=== PATIENT | male | born 1945 | race Caucasian/White ===

== ENCOUNTER 2017-09-25 19:07 | Inpatient (IN) | payer BC, MEDICARE ==
[2017-09-25] MEDS ORDERED: Piperacillin/Tazobactam 3.375 GM VIAL ONE (20:20)
[2017-09-25] MEDS ORDERED: Sodium Chloride 0.9% 100 ML ONE (20:20)
[2017-09-25] MEDS ORDERED: Sterile Water 20 ML ONE (20:24)
[2017-09-25 20:42] LABS: Anion Gap 15 mmol/L (10-20); BUN (Urea Nitrogen) 15 mg/dL (8.4-25.7); Band 3 % (5-11); Calc. Creatinine Clearance 0 mL/min (70-130); Calcium 9.2 mg/dL (7.8-10.44); Carbon Dioxide 25 mmol/L (23-31); Chloride 103 mmol/L (98-107); Eosinophils 14 % (0-10); Estimated GFR-MDRD 74; Glucose 95 mg/dL (80-115); Hemoglobin 15.2 g/dL (14.0-18.0); Lymphocytes 10 % (21-51); MDiff Complete? YES; Mean Corpuscular HGB CONC 34.2 g/dL (32.0-36.0); Mean Corpuscular Hemoglobin 30.8 pg (27.0-31.0); Mean Corpuscular Volume 90.2 fL (78.0-98.0); Mean Platelet Volume 7.4 fL (7.4-10.4); Monocytes 6 % (0-10); Neutrophil 65 % (42-75); PLT Morphology Comment Appears Adequate; Platelet Count 195 thou/uL (130-400); Potassium 3.8 mmol/L (3.5-5.1); RBC Distribution Width 10.9 % (11.5-14.5); Reactive Lymphocytes 1 % (0-10); Red Blood Cell (RBC) Count 4.92 mill/uL (4.70-6.10); Sodium 139 mmol/L (136-145); Vacuoles SLIGHT; White Blood Cell (WBC) Count 8.7 thou/uL (4.8-10.8)
--- NOTE | 2017-09-25 22:06 | ULT ---
ULTRASOUND DOPPLER DUPLEX VENOUS LEFT UPPER EXTREMITY: HISTORY: A 71-year-old male with left upper extremity pain, edema, and erythema, with cellulitis. TECHNIQUE: Rogers-scale, color-flow, and spectral analysis of the major veins of the left upper extremity. Compre ssion applied to all veins except the subclavian. FINDINGS: There is demonstration of blood flow with no evidence of thrombosis, involving the left cephalic, bra chial, radial, ulnar, basilic, axillary, subclavian, and internal jugular veins. IMPRESSION: Negative. No deep venous thrombosis of the left upper extremity. POS: RUDDY
[2017-09-26] MEDS ORDERED: Acetaminophen 325 MG TAB PO PRN ×2 (01:01→08:13)
[2017-09-26] MEDS ORDERED: HYDROcodone/Acetaminophen 5/325 mg Tablet PO PRN ×3 (01:01→08:13)
[2017-09-26] MEDS ORDERED: Ondansetron HCl/PF 4 MG/2 ML Vial IVP PRN ×2 (01:01→08:13)
[2017-09-26] MEDS ORDERED: Ondansetron ODT 4 MG TAB SL PRN (01:01)
[2017-09-26 01:03] VITALS: BMI 24.3
[2017-09-26] MEDS: Piperacillin/Tazobactam 3.375 GM in Sodium Chloride 0.9% 100 ML IVPB SCH ×2 (01:20→09:12)
[2017-09-26] MEDS ORDERED: Zolpidem Tartrate 5 MG TAB PO PRN (08:13)
[2017-09-26] MEDS ORDERED: hydrALAZINE 20 MG/ML VIAL SLOW IVP PRN (08:13)
[2017-09-26] MEDS ORDERED: Sodium Chloride 0.65% Nasal 44 ML BOT EA NARE PRN (08:13)
[2017-09-26] MEDS ORDERED: Diabetic Tussin 200 MG/10 ML UDCUP PO PRN (08:13)
[2017-09-26] MEDS ORDERED: Artificial Tears 18 DROP/0.9 ML EA EYE PRN (08:13)
[2017-09-26] MEDS ORDERED: Milk Of Magnesia 30 ML UDCUP PO PRN (08:13)
[2017-09-26] MEDS ORDERED: Mag-Al 1200 mg/1200 mg/30 ML UDCUP PO PRN (08:13)
[2017-09-26] MEDS ORDERED: Ondansetron ODT 4 MG TAB PO PRN (08:13)
[2017-09-26] MEDS ORDERED: Chloraseptic Spray 180 ml Bottle PO PRN (08:13)
[2017-09-26] MEDS ORDERED: Senokot 8.6 MG TAB PO PRN (08:13)
[2017-09-26] MEDS ORDERED: Eucerin (Mineral Oil/Petrolatum,White) 30 gm Jar TOP PRN (08:13)
[2017-09-26] MEDS ORDERED: Loperamide HCl 2 MG CAP PO PRN (08:13)
[2017-09-26] MEDS ORDERED: Loratadine 10 MG TAB PO PRN (08:13)
[2017-09-26] MEDS ORDERED: cefTRIAXone\\ROCEPHIN 2 GM in Sodium Chloride 0.9% 100 ML IVPB SCH (09:00)
[2017-09-26] MEDS ORDERED: Vancomycin HCl 1 GM in Premix Bag 1 BAG IVPB SCH (09:00)
[2017-09-26] MEDS ORDERED: Terbinafine 250 MG TAB PO SCH ×2 (09:00→21:00)
[2017-09-26] MEDS: Famotidine 20 MG TAB PO SCH ×2 (09:15→20:36)
[2017-09-26] MEDS: Enoxaparin Sodium 40 MG/0.4 ML SYRINGE SC SCH ×2 (09:16→09:27)
[2017-09-26] MEDS: Saccharomyces boulardii 250 MG CAP PO SCH (09:17)
--- NOTE | 2017-09-26 12:09 | HP ---
PRIMARY CARE PHYSICIAN: Dr. Francisco Gold. REASON FOR ADMISSION: Left upper extremity cellulitis, failure of outpatient therapy. HISTORY OF PRESENT ILLNESS: A 71-year-old male who has past medical history of dyslipidemia who presented to [facility] emergency room with complaint of left upper extremity erythema, swelling. Patient reports that he had a tick bite on his left side of neck which was making him itch and swelling, but it subsided. At the same time, the patient was also having left upper extremity cellulitis. The patient saw primary care physician about 2 weeks ago. At that time, he was given doxycycline 100 mg twice daily which he finished complete course of therapy. Subsequently, he had a tick bite on left side of neck that was causing swelling, itching and that is why he went to Urgent Care and he was prescribed clindamycin. The patient was also suffering from fungal infection in his toenail and that is why he was given recently prescription for terbinafine. Patient was not feeling any improvement in his erythema and swelling in his left upper extremity. He reports that he hit left upper extremity in pipe and pipes scraped his left upper arm and since then his erythema and swelling is getting worse and he is no longer feeling any better with oral antibiotic therapy. He also noticed some drainage in his left upper arm. Patient denies any fever or chills. He denies any other symptoms. He denies any constipation, diarrhea, melena or hematochezia. He denies any UTI symptoms. He denies any lower extremity symptoms. REVIEW OF SYSTEMS: The following complete review of systems was negative, unless otherwise mentioned in the HPI or below: Constitutional: Weight loss or gain, ability to conduct usual activities. Skin: Rash, itching. Eyes: Double vision, pain. ENT/Mouth: Nose bleeding, neck stiffness, pain, tenderness. Cardiovascular: Palpitations, dyspnea on exertion, orthopnea. Respiratory: Shortness of breath, wheezing, cough, hemoptysis, fever or night sweats. Gastrointestinal: Poor appetite, abdominal pain, heartburn, nausea, vomiting, constipation, or diarrhea. Genitourinary: Urgency, frequency, dysuria, nocturia. Musculoskeletal: Pain, swelling. Neurologic/Psychiatric: Anxiety, depression. Allergy/Immunologic: Skin rash, bleeding tendency. Please see my HPI for pertinent positive and negative. All other review of system reviewed and negative except as mentioned in the HPI. PAST MEDICAL HISTORY: Seasonal allergies, dyslipidemia. PAST SURGICAL HISTORY: Nasal polypectomy in 2008 and inguinal hernia repair. PAST PSYCHIATRIC HISTORY: Reviewed and negative. SOCIAL HISTORY: Patient is and lives at home with family. No history of tobacco, alcohol or illicit drug abuse. FAMILY HISTORY: No strong family history of premature coronary artery disease, stroke or cancer. ALLERGIES: No known drug allergy. CURRENT HOME MEDICATIONS: Patient is on clindamycin 300 mg 3 times daily, terbinafine 250 mg p.o. daily. EMERGENCY ROOM COURSE: Patient is given vancomycin and Zosyn. PHYSICAL EXAMINATION: VITAL SIGNS: On arrival, blood pressure 146/94, pulse 88, respiratory rate 18, temperature 97.8, saturation 95% on room air and weight 72.6 kilograms. GENERAL: Patient is currently alert, awake, no obvious acute distress. HEAD: Normocephalic, atraumatic. EYES: Pupils round, reactive to light. Extraocular muscle intact. ENT: Oropharynx within normal limit. Moist mucous membranes. No oral lesion, no pharyngeal erythema, no exudate. NECK: Supple, no JVD, no thyromegaly, no carotid bruit. LUNGS: Clear to auscultation without any rhonchi or rales. CARDIAC: S1 and S2 regular without any murmur. ABDOMEN: Soft, bowel sounds present, nontender, nondistended. No organomegaly , no mass, no suprapubic tenderness. BACK: Examination unremarkable. No CVA tenderness. EXTREMITIES: Upper extremity passive movement of all joints are normal. Left upper extremity is erythematous, swollen and serosanguineous fluid drain is noted in upper arm. Right upper extremity within normal limits. Lower extremity within normal limits. No edema. Good peripheral pulsation. SKIN: No skin rash other than cellulitis in picture of left upper extremity. PSYCHIATRIC: Normal affect. NEUROLOGIC: Nonfocal examination. IMAGING DATA AND SIGNIFICANT LABORATORY DATA: Ultrasound of left upper extremity negative for any DVT. CBC: WBC 8.7, hemoglobin 15.2, platelet 195, bandemia 3. BMP: Sodium 139, potassium 3.8, chloride 103, carbon dioxide 25, anion gap 15, BUN 15, creatinine 1.0, glucose 95, calcium 9.2. ASSESSMENT AND PLAN/IMPRESSION: 1. Left upper extremity cellulitis. DD is eczema, dermatitis 2. Failure of outpatient therapy. 3. ? Sepsis due to problem #1. PLAN: 1. Full admission to medical floor. We will continue Rocephin 2 gram IV daily and vancomycin as per pharmacy adjusted dose. We will continue his home dose of Lamisil 250 mg p.o. at bedtime. We will consult Dr. Lovell for his opinion. We will consult Wound Care team for wound care. We will monitor clinical response. We will control his pain with morphine and [place]. Wound care team will be consulted. 2. Deep venous thrombosis prophylaxis, Lovenox 40 mg subcu daily. 3. Gastrointestinal prophylaxis, Pepcid 20 mg p.o. b.i.d. 3. Tinea infection of toenail. The patient is already on Lamisil 250 mg p.o. daily. CODE STATUS: The patient is FULL CODE. Patient does not have any surrogate decision maker. Disposition plan based on clinical course. We are expecting patient's stay in hospital more than 2 midnights. Plan of care discussed with the patient in detail. MTDD
--- NOTE | 2017-09-26 13:38 | CON ---
DATE OF CONSULTATION: 09/26/2017 REASON FOR CONSULTATION: Skin eruption, left arm. HISTORY OF PRESENT ILLNESS: A 71-year-old without any major medical history, who sustained a trauma to his left arm during work, according to him from a pipe. He developed a skin eruption and then nex t day he was bitten by tick and was given doxycycline for 10 days. Because of persistence of the lef t arm eruption, he was admitted. He has marked pruritus in the left arm. According to him some home remedy was applied topically by his daughter without improvement. He has a history of chronic recur rent dermatitis or contact dermatitis which was evaluated by material liaison at [facility] in abou t a year and a half ago, he had some skin testing done by Dr. Cooper. He does not recall the results of the skin test. No headaches, no visual symptoms, sore throat, odynophagia, dysphagia, no back pa in, no dyspnea or cough. No genitourinary symptoms or diarrhea, no bleeding, no joint symptoms. He has chronic skin eruption dorsal aspect of the right and left feet and a few areas of periungual erup tion as well. He had been applying clobetasol prescribed by Dr. Cooper, but stopped doing that recen tly. PAST MEDICAL HISTORY: Contact dermatitis evaluated at [facility] by Dr. Cooper with skin testin g and treated with clobetasol. PAST SURGICAL HISTORY: Inguinal hernia repair, nasal polypectomy. SOCIAL HISTORY: Works in [employer] in [place]. Lives in [place]. Never a sm oker. FAMILY HISTORY: Noncontributory. ALLERGIES. No drug allergy reported. MEDICATIONS: Administered at this time: [place], Maalox, ceftriaxone, vancomycin. PHYSICAL EXAMINATION: VITAL SIGNS: Have been normal. He remains afebrile, slight elevation of systolic and diastolic bloo d pressure. SKIN: Shows area of confluent erythema with blistering and yellow scabbing in the left arm extending from the area immediately below the left shoulder all the way towards the elbow. He has a few areas of this erythema in the dorsal aspect of right and left feet and superior angle areas of blistering as well. No lymphadenopathy. HEENT: Ocular movements conjugate. Sclerae white. Conjunctivae normal. Oral cavity unremarkable. NECK: Supple, no jugular distention. LUNGS: Symmetric clear breath sounds. HEART: S1, S2, regular rate without murmurs. No S3 or S4. ABDOMEN: Soft, not distended or tender. No ascites. No bladder distention. EXTREMITIES: No joint inflammatory activity. Moves extremities equally. Plantar responses are flex ure. NEUROLOGIC: Cognitive function appears to be intact. LABORATORY DATA: White cell count 8.7, hemoglobin 15, MCV 90, platelets 195 with 65% neutrophils, 3% bands, 10% lymphocytes, 14% eosinophils and chemistry submitted within normal limits. Vascular ultr asound with no evidence of deep vein thrombosis. ASSESSMENT: 1. History of chronic contact dermatitis or eczema. 2. Circumferential area of contact dermatitis or eczema, left arm. DISCUSSION: The patient's clinical presentation is consistent with eczema. 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 Discontinue antimicrobials. Wet to dry dressings or compresses every 4 yahaira rs, topical corticosteroids. Need to review Dr. Cooper's allergy testing which was done at [facility] last year. Submit IgE levels.
[2017-09-26] MEDS: Betamethasone 0.1% Cream 45 GM TUBE TOP SCH (20:36)
[2017-09-26] MEDS ORDERED: TERBINAFINE 250 MG PO SCH (21:00)
[2017-09-27 05:14] LABS: #Basophils 0.1 thou/uL (0.0-0.2); #Eosinphils 0.7 thou/uL (0.0-0.7); #Lymphocytes 1.3 thou/uL (1.20-3.40); #Monocytes 0.4 thou/uL (0.11-0.59); #Neutrophils 4.6 thou/uL (1.40-6.50); %Basophils 0.8 % (0.0-1.0); %Eosinophils 9.4 % (0.0-10.0); %Lymphocytes 18.2 % (21.0-51.0); %Monocytes 6.1 % (0.0-10.0); %Neutrophils 65.4 % (42.0-75.0); Hemoglobin 15.6 g/dL (14.0-18.0); Mean Corpuscular HGB CONC 32.8 g/dL (32.0-36.0); Mean Corpuscular Hemoglobin 31.9 pg (27.0-31.0); Mean Platelet Volume 7.3 fL (7.4-10.4); Platelet Count 194 thou/uL (130-400); RBC Distribution Width 11.5 % (11.5-14.5); White Blood Cell (WBC) Count 7.1 thou/uL (4.8-10.8)
[2017-09-27 05:29] LABS: Anion Gap 10 mmol/L (10-20); BUN (Urea Nitrogen) 14 mg/dL (8.4-25.7); CRP (Inflammatory) Less than 0.50 mg/dL (= or < 0.5); Calc. Creatinine Clearance 77 mL/min (70-130); Calcium 9.5 mg/dL (7.8-10.44); Carbon Dioxide 26 mmol/L (23-31); Chloride 107 mmol/L (98-107); Estimated GFR-MDRD 77; Glucose 103 mg/dL (80-115); Potassium 4.3 mmol/L (3.5-5.1); Sodium 139 mmol/L (136-145)
[2017-09-27 07:16] VITALS: BP 167/94; TEMP 97.5
[2017-09-27 08:42] LABS: Vancomycin, Trough 4.8 ug/mL
[2017-09-27] MEDS ORDERED: Betamethasone 0.1% Cream 45 GM TUBE TOP SCH (09:00)
[2017-09-27] MEDS: Saccharomyces boulardii 250 MG CAP PO SCH (09:12)
[2017-09-27] MEDS: Famotidine 20 MG TAB PO SCH (09:12)
[2017-09-27] MEDS: Enoxaparin Sodium 40 MG/0.4 ML SYRINGE SC SCH (09:13)
[2017-09-27] MEDS: Betamethasone 0.1% Cream 45 GM TUBE TOP SCH (09:13)
--- NOTE | 2017-09-27 10:39 | PDOC.PN ---
- Subjective Encounter Start Date: 09/27/17 Encounter Start Time: 08:10 -: old records requested/rev Patient seen and examined. No new complaints. No overnight events - Objective Resuscitation Status: Resuscitation Status FULL:Full Resuscitation MAR Reviewed: Yes Vital Signs & Weight: Vital Signs (12 hours) Temp Pulse Resp BP Pulse Ox 09/27/17 08:00 97.5 F L 72 18 97 09/27/17 07:15 97.5 F L 72 18 167/94 H 97 Weight Admit Weight 169 lb 4.8 oz Weight 169 lb 4.8 oz I&O: 09/26/17 09/27/17 09/28/17 06:59 06:59 06:59 Intake Total 720 Balance 720 Result Diagrams: 09/27/17 04:48 09/27/17 04:49 Phys Exam - Physical Examination Constitutional: NAD HEENT: PERRLA, moist MMs, sclera anicteric Neck: no JVD, supple Respiratory: no wheezing, no rales, no rhonchi Cardiovascular: RRR, no significant murmur, no rub Gastrointestinal: soft, non-tender, no distention, positive bowel sounds Musculoskeletal: no edema, pulses present eczema on left UE Neurological: non-focal, normal sensation, moves all 4 limbs Lymphatic: no nodes Psychiatric: normal affect, A&O x 3 Skin: normal turgor Dx/Plan (1) Eczema of left upper extremity Code(s): L30.9 - DERMATITIS, UNSPECIFIED Status: Acute - Plan cont current plan of care, plan discussed w/ family * . Review of Systems - Review of Systems Eyes: negative: Pain, Vision Change, Conjunctivae Inflammation, Eyelid Inflammation, Redness, Other ENT: negative: Ear Pain, Ear Discharge, Nose Pain, Nose Discharge, Nose Congestion, Mouth Pain, Mouth Swelling, Throat Pain, Throat Swelling, Other Respiratory: negative: Cough, Dry, Shortness of Breath, Hemoptysis, SOB with Excertion, Pleuritic Pain, Sputum, Wheezing Cardiovascular: negative: chest pain, palpitations, orthopnea, paroxysmal nocturnal dyspnea, edema, light headedness, other Gastrointestinal: negative: Nausea, Vomiting, Abdominal Pain, Diarrhea, Constipation, Melena, Hematochezia, Other Genitourinary: negative: Dysuria, Frequency, Incontinence, Hematuria, Retention , Other Musculoskeletal: negative: Neck Pain, Shoulder Pain, Arm Pain, Back Pain, Hand Pain, Leg Pain, Foot Pain, Other Skin: Rash. negative: Lesions, Joseph, Bruising, Other - Medications/Allergies Allergies/Adverse Reactions: Allergies Allergy/AdvReac Type Severity Reaction Status Date / Time No Known Drug Allergies Allergy Verified 09/26/17 01:09 Medications: Current Medications Acetaminophen (Tylenol) 650 mg PO Q4H PRN PRN Reason: Headache/Fever or Pain Hydrocodone Bitart/Acetaminophen (Carmi 5/325) 1 tab PO Q4H PRN PRN Reason: Moderate Pain (4-6) Al Hydroxide/Mg Hydroxide (Maalox) 30 ml PO Q6H PRN PRN Reason: Heartburn or Indigestion Artificial Tears (Tears Naturale) 0 drop EA EYE PRN PRN PRN Reason: Dry Eyes Betamethasone Valerate (Valisone 0.1% Cream) 0 gm TOP BID [facility] Last Admin: 09/27/17 09:13 Dose: 1 applic Enoxaparin Sodium (Lovenox) 40 mg SC 0900 [facility] Last Admin: 09/27/17 09:13 Dose: Not Given Famotidine (Pepcid) 20 mg PO BID [facility] Last Admin: 09/27/17 09:12 Dose: 20 mg Guaifenesin (Robitussin Sf) 200 mg PO Q4H PRN PRN Reason: Cough Hydralazine HCl (Apresoline) 10 mg SLOW IVP Q4H PRN PRN Reason: Systolic BP > 180 Loperamide HCl (Imodium) 2 mg PO PRN PRN PRN Reason: Diarrhea/Loose Stools Loratadine (Claritin) 10 mg PO DAILYPRN PRN PRN Reason: Sinus Symptoms Magnesium Hydroxide (Milk Of Magnesium) 30 ml PO DAILYPRN PRN PRN Reason: Constipation Mineral Oil/White Petrolatum (Eucerin Cream) 0 gm TOP BIDPRN PRN PRN Reason: Dry Skin Morphine Sulfate (Morphine) 2 mg SLOW IVP Q4H PRN PRN Reason: Pain Ondansetron HCl (Zofran Odt) 4 mg PO Q6H PRN PRN Reason: Nausea/Vomiting Ondansetron HCl (Zofran) 4 mg IVP Q6H PRN PRN Reason: Nausea/Vomiting Terbinafine 250 Mg (Tab Hm Med) 0 each PO HS [facility] Last Admin: 09/26/17 21:01 Dose: 1 each Phenol (Chloraseptic [place] 180 Ml Bot) 0 ml PO PRN PRN PRN Reason: Sore Throat Saccharomyces Boulardii (Florastor) 250 mg PO DAILY [facility] Last Admin: 09/27/17 09:12 Dose: 250 mg Senna (Senokot) 2 tab PO HSPRN PRN PRN Reason: Constipation Sodium Chloride ([place] Nasal [place] 0.65%) 0 ml EA NARE QIDPRN PRN PRN Reason: Nasal Congestion Zolpidem Tartrate (Ambien) 5 mg PO HSPRN PRN PRN Reason: Insomnia
--- NOTE | 2017-09-27 13:03 | DIS ---
DATE OF ADMISSION: 09/25/2017 DATE OF DISCHARGE: 09/27/2017 PRIMARY CARE PHYSICIAN: Moncho Singh M.D. DISCHARGE DISPOSITION: Home. PRIMARY DISCHARGE DIAGNOSIS: Exam of left upper extremity. SECONDARY DISCHARGE DIAGNOSIS: None. PRIMARY PROCEDURE/OPERATION: None. RADIOLOGICAL INVESTIGATION: Ultrasound of left upper extremity was negative for any DVT. SIGNIFICANT LABORATORY DATA: WBC 7.1, hemoglobin 15.6, ESR is 14, platelet 194. Sodium 139, creatinine 0.97. CRP less than 0.50. Blood culture negative. DISCHARGE MEDICATIONS: Prednisone 20 mg p.o. daily for 10 days and betamethasone 0.1% topical application b.i.d. CONTRAINDICATIONS: None. CODE STATUS: FULL CODE. INPATIENT CONSULTANTS: Dr. Lovell was consulted, who recommended that patient has eczema and he discontinued antibiotic therapy. TEST RESULTS PENDING ON DISCHARGE: None. ALLERGIES: No known drug allergy. DISCHARGE PLAN: Post hospital, the patient will follow up with primary care physician. 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 HOSPITAL COURSE: A 71-year-old male who has erythema and rash over left upper extremity for a period of time. He has failed a couple of times oral antibiotic therapy prescribed by his primary care physician. He was evaluated at local emergency room and subsequently he was sent to emergency room for evaluation. He was admitted to medical floor. He was initially suspected for cellulitis and he was treated with broad spectrum-antibiotic therapy. We consulted Dr. Lovell for his opinion. Based on Dr. Lovell' opinion that patient has elevated eosinophil and prolonged history and clinical picture consistent with exam other than cellulitis and antibiotic therapy was discontinued upon discharge. We prescribed prednisone for 10 days and topical steroid application for next several weeks until it resolves. The patient is instructed to follow up with the primary care physician and skin diving teacher. The patient is seen and examined at bedside today. Plan of care discussed with the family member. I spent enough time to discuss with patient about local skin care and to discuss about eczema The patient is seen and examined at bedside today. Please see my progress note from today for further detail. Total time spent on discharge day around 31 minutes MTDD
== END 2017-09-27 13:40 | disposition home or self-care (01) | DRG 607 ==
LOC: SCSER 19:07 → T4-A 22:00 → SCSER 09-26 00:11 → UNDODISIN 09-27 12:30
PROVIDERS: ADMIT Hospitalist; ATTEND Hospitalist
DX: L30.9 Dermatitis, unspecified (principal); E78.5 Hyperlipidemia, unspecified
CPT/HCPCS: 36415; 80048; 80202; 82785; 85025; 86140; 87040; 96365; 96366; 96367; A4216; J0696; J1650; J2543; J3370; J7050